=== PATIENT | female | born 1990 | race Caucasian/White ===

== ENCOUNTER 2017-01-28 07:19 | Emergency (ER) | payer MEDICAID ==
[~2017-01-28] VITALS: Ht 165.1 cm; Wt 87.0 kg
[~2017-01-28 07:19] MED LIST: PREN1CAP7 PO; TERC20CR VAGINAL; VITA100032; VITATAB11
[2017-01-28 07:22] VITALS: BP 116/78; PULSE 95; RESP 16; TEMP 99.4; O2SAT 96
--- NOTE | 2017-01-28 07:47 | PD ---
HPI Chief Complaint: Related Problem Time Seen by Provider: 07:31 Travel History International Travel<30 days: No Contact w/Intl Traveler<30days: No Traveled to known affect area: No History of Present Illness HPI This is a 26-year-old who presents to the emergency department approximately 8 weeks with vaginal spotting that started yesterday and having a larger amount of dark blood this morning with some subsequent spotting and some lower abdominal cramping, mild, intermittent. She has had one miscarriage in the past. She has had a ultrasound in this confirming IUP. She has never required RhoGAM in prior pregnancies. PFSH Past Medical History Diminished Hearing: No ?: LMP: last week of October : 1 Miscarriage: 1 Past Surgical History Gynecologic Surgery: Yes (D&C 2005 MISCARRIAGE ) Social History Alcohol Use: No Tobacco Use: No Substance Use: No Allergies-Medications (Allergen,Severity, Reaction): Coded Allergies: No Known Allergies (Verified , 01/28/17) Reported Meds & Prescriptions Reported Meds & Active Scripts Active Citranatal [place] ( W/O Vit A W/ Fe Fumar) 27-1-260 Mg Cap 1 Cap PO DAILY Terazol 3 Vaginal Cream (Terconazole Vaginal Cream) 0.8 % Cream 1 Appl VAGINAL HS 1 applicatorful intravaginally x 3 nights Vitafol Ultra 29-0.6-0.4-200 mg ( Vit W/ Fe Polysacch C) 1 Cap Cap Reported Vitamin D (Cholecalciferol) 1,000 Unit Cap 1,000 DAILY Vitamin B Complex (B-Complex Vitamins) 1 Tab Review of Systems Except as stated in HPI: all other systems reviewed are Neg Physical Exam Narrative GENERAL:Well appearing, no acute distress SKIN: Warm and dry. HEAD: Atraumatic. Normocephalic. EYES: Pupils equal and round. No injection or drainage. ENT: Moist mucous membranes NECK: Trachea midline. CARDIOVASCULAR: Regular rate and rhythm. No murmur appreciated. RESPIRATORY: Clear to auscultation. Breath sounds equal bilaterally. GASTROINTESTINAL: Abdomen soft, non-tender, nondistended. MUSCULOSKELETAL: No obvious deformities. NEUROLOGICAL: Awake and alert. No obvious cranial nerve deficits. Moving all extremities. PSYCHIATRIC: Appropriate mood and affect; insight and judgment normal. Data Data Last Documented VS Vital Signs Date Time Temp Pulse Resp B/P Pulse Ox O2 Delivery O2 Flow Rate FiO2 4/2/17 07:22 99.4 95 16 116/78 96 Orders Ed Poc Ultrasound (01/28/17 ) MDM Medical Decision Making Medical Screen Exam Complete: Yes Emergency Medical Condition: Yes Interpretation(s) afebrile, no tachycardia, normotensive Differential Diagnosis Intrauterine , ectopic , threatened miscarriage, complete miscarriage Narrative Course This is a 26-year-old female who presents to the emergency department with some spotting in the setting of early . Physical exam is reassuring. Ultrasound was performed demonstrating an intrauterine with a normal heart rate. Rh status is not necessary given patient is having spotting and not significant clinical bleeding. Patient will be discharged to follow-up with her primary SANITATION LABORER. Diagnosis Primary Impression: Threatened miscarriage Patient Instructions: General Instructions Additional Instructions: You have been diagnosed with a threatened miscarriage. Many women who have vaginal bleeding in early go on to have normal pregnancies. However some women that have vaginal bleeding will have a miscarriage and it is important to followup with your turner off. If you develop severe abdominal pain, fever, persistent vomiting or inability to eat, heavy vaginal bleeding using more than one pad an hour, lightheadedness , dizziness, chest pain or shortness of breath return to the emergency department immediately. Followup with your turner off as soon as possible. Take Tylenol as needed for pain. Med/Other Pt SpecificInfo: No Change to Meds Disposition: 01 DISCHARGE HOME Condition: Stable Latrice Fuentes MD Jan 28, 2017 07:47
[2017-01-29] MEDS ORDERED: CYTO200T PO (11:35)
[2017-03-13] MEDS ORDERED: MULT-120 PO (10:56)
[2017-03-23] MEDS ORDERED: MULTLIQ PO (10:25)
== END 2017-01-28 08:08 | disposition home or self-care (01) ==
LOC: PHED 07:19
DX: O20.0 Threatened abortion (principal); Z3A.08 8 weeks gestation of pregnancy
CPT/HCPCS: 99283

== ENCOUNTER 2017-01-28 12:44 | Emergency (ER) | payer MEDICAID ==
[2017-01-28 13:11] VITALS: BP 131/69; PULSE 100; RESP 20; TEMP 98.2; O2SAT 100
[2017-01-28] MEDS ORDERED: ACETAMINOPHEN 500 MG CPLT PO ONE (13:30)
[2017-01-28] MEDS ORDERED: SODIUM CHLOR 0.9% 1000 ML INJ 1,000 ML IV ONE (13:30)
[2017-01-28 13:44] LABS: AUTOMATED NEUTROPHIL # 12.3 TH/MM3 (1.8-7.7); BASOPHIL # 0.2 TH/MM3 (0-0.2); BASOPHIL % 1.6 % (0.0-2.0); EOSINOPHIL % 0.1 % (0.0-4.0); HEMATOCRIT 38.6 % (35.0-46.0); HEMO FLAGS DIFF FINAL; LYMPH % 5.8 % (9.0-44.0); LYMPHOCYTE # 0.8 TH/MM3 (1.0-4.8); MEAN CELL VOLUME 91.5 FL (80.0-100.0); MEAN CORPUSCULAR HEMOGLOBIN 30.9 PG (27.0-34.0); MEAN CORPUSCULAR HGB CONC 33.8 % (32.0-36.0); MONO % 4.8 % (0.0-8.0); NEUT % 87.7 % (16.0-70.0); PLATELET COUNT 175 TH/MM3 (150-450); RED BLOOD COUNT 4.22 MIL/MM3 (4.00-5.30)
[2017-01-28 13:52] LABS: POTASSIUM 3.6 MEQ/L (3.5-5.1)
[2017-01-28 13:55] LABS: BICARBONATE 24.3 MEQ/L (21.0-32.0)
--- NOTE | 2017-01-28 14:04 | PD ---
HPI Chief Complaint: Related Problem Time Seen by Provider: 13:18 Travel History International Travel<30 days: No Contact w/Intl Traveler<30days: No Traveled to known affect area: No History of Present Illness HPI This is a 26-year-old female who I saw earlier today in the setting of a threatened miscarriage who presents to the emergency department having gone home and then 1 hour for her to arrival started to have heavy bleeding to the point where she had to change 6 pads and she didn't feel like it was stopping, constant, severe, associated with some lightheadedness and moderate severity abdominal cramping. She was nervous about the amount of bleeding she had so she came to the emergency department. [facility] Past Medical History Diminished Hearing: No ?: : 5 Para: 3 Miscarriage: 1 Past Surgical History Gynecologic Surgery: Yes (D&C 2005 MISCARRIAGE ) Other Surgery: Yes (breast agumentation, tummy tuck) Social History Alcohol Use: No Tobacco Use: No Substance Use: No Allergies-Medications (Allergen,Severity, Reaction): Coded Allergies: No Known Allergies (Verified , 01/28/17) Reported Meds & Prescriptions Reported Meds & Active Scripts Active Citranatal [place] ( W/O Vit A W/ Fe Fumar) 27-1-260 Mg Cap 1 Cap PO DAILY Review of Systems Except as stated in HPI: all other systems reviewed are Neg Physical Exam Narrative GENERAL:Well appearing, no acute distress SKIN: Warm and dry. HEAD: Atraumatic. Normocephalic. EYES: Pupils equal and round. No injection or drainage. ENT: Moist mucous membranes NECK: Trachea midline. CARDIOVASCULAR: Regular rate and rhythm. No murmur appreciated. RESPIRATORY: Clear to auscultation. Breath sounds equal bilaterally. GASTROINTESTINAL: Abdomen soft, mildly tender to palpation in the lower abdomen with no rebound or guarding. MUSCULOSKELETAL: No obvious deformities. NEUROLOGICAL: Awake and alert. No obvious cranial nerve deficits. Moving all extremities. PSYCHIATRIC: Appropriate mood and affect; insight and judgment normal. Data Data Last Documented VS Vital Signs Date Time Temp Pulse Resp B/P Pulse Ox O2 Delivery O2 Flow Rate FiO2 01/28/17 14:05 100 18 115/75 100 Room Air 01/28/17 13:11 98.2 Orders Complete Blood Count With Diff (01/28/17 13:21) Basic Metabolic Panel (Bmp) (01/28/17 13:21) Type And Screen (01/28/17 13:21) ^ Insert Iv (01/28/17 13:21) Sodium Chlor 0.9% 1000 Ml Inj (Ns 1000 M (01/28/17 13:30) Acetaminophen (Tylenol) (01/28/17 13:30) Ed Poc Ultrasound (01/28/17 ) Labs Laboratory Tests Test 01/28/17 13:25 White Blood Count 14.0 TH/MM3 Red Blood Count 4.22 MIL/MM3 Hemoglobin 13.0 GM/DL Hematocrit 38.6 % Mean Corpuscular Volume 91.5 FL Mean Corpuscular Hemoglobin 30.9 PG Mean Corpuscular Hemoglobin 33.8 % Concent Red Cell Distribution Width 12.0 % Platelet Count 175 TH/MM3 Mean Platelet Volume 8.9 FL Neutrophils (%) (Auto) 87.7 % Lymphocytes (%) (Auto) 5.8 % Monocytes (%) (Auto) 4.8 % Eosinophils (%) (Auto) 0.1 % Basophils (%) (Auto) 1.6 % Neutrophils # (Auto) 12.3 TH/MM3 Lymphocytes # (Auto) 0.8 TH/MM3 Monocytes # (Auto) 0.7 TH/MM3 Eosinophils # (Auto) 0.0 TH/MM3 Basophils # (Auto) 0.2 TH/MM3 CBC Comment DIFF FINAL Differential Comment Sodium Level 141 MEQ/L Potassium Level 3.6 MEQ/L Chloride Level 105 MEQ/L Carbon Dioxide Level 24.3 MEQ/L Anion Gap 12 MEQ/L Blood Urea Nitrogen 9 MG/DL Creatinine 0.71 MG/DL Estimat Glomerular Filtration 98 ML/MIN Rate Random Glucose 95 MG/DL Calcium Level 9.0 MG/DL [facility] Medical Decision Making Medical Screen Exam Complete: Yes Emergency Medical Condition: Yes Interpretation(s) afebrile, no tachycardia, normotensive leukocytosis possible stress response Differential Diagnosis Threatened miscarriage, incomplete miscarriage, complete miscarriage Narrative Course This is a 26-year-old female who presents to the emergency department with heavy vaginal bleeding that's been going on for an hour in the setting of a threatened miscarriage diagnosed earlier today. On pelvic exam she has clots and some fibrinous products in the vault. Bedside ultrasound demonstrates heterogenous material in the uterus with no intrauterine , changed from ultrasound earlier today. I suspect the patient is having a miscarriage. Patient's vital signs are reassuring and her blood count is normal. I think she can be discharged home and follow-up with her field care coordinator as an outpatient. Diagnosis Primary Impression: Incomplete miscarriage Patient Instructions: General Instructions Additional Instructions: If you develop severe abdominal pain, fever, persistent vomiting or inability to eat, heavy vaginal bleeding using more than one pad an hour, lightheadedness , dizziness, chest pain or shortness of breath return to the emergency department immediately. Followup with your financial services manager as soon as possible. Take Tylenol as needed for pain. Med/Other Pt SpecificInfo: No Change to Meds Disposition: 01 DISCHARGE HOME Condition: Stable Latrice Fuentes MD Jan 28, 2017 14:04
[2017-01-28 14:05] VITALS: BP 115/75; PULSE 100; RESP 18; O2SAT 100
[2017-01-28] MEDS ORDERED: KETOROLAC TROMETHAMINE 30 MG/ML (IVP) VIAL IV PUSH ONE (14:45)
[2017-01-29] MEDS ORDERED: CYTO200T PO (11:35)
[2017-03-13] MEDS ORDERED: MULT-120 PO (10:56)
[2017-03-23] MEDS ORDERED: MULTLIQ PO (10:25)
== END 2017-01-28 14:58 | disposition home or self-care (01) ==
LOC: PHED 12:44
DX: O03.4 Incomplete spontaneous abortion without complication (principal); R42 Dizziness and giddiness; R10.9 Unspecified abdominal pain; Z3A.08 8 weeks gestation of pregnancy
CPT/HCPCS: 80048; 85025; 86850; 86900; 86901; 96361; 96374; 99284; J1885; J7030

== ENCOUNTER 2017-01-29 08:52 | Emergency (ER) | payer MEDICAID ==
[~2017-01-29] VITALS: Ht 165.1 cm; Wt 88.0 kg
[2017-01-29 08:56] VITALS: BP 113/77; PULSE 96; RESP 18; TEMP 98.5; O2SAT 100
[2017-01-29] MEDS ORDERED: KETOROLAC TROMETHAMINE 30 MG/ML (IVP) VIAL IV PUSH ONE (09:15)
[2017-01-29] MEDS ORDERED: SODIUM CHLOR 0.9% 1000 ML INJ 1,000 ML IV ONE (09:15)
--- NOTE | 2017-01-29 09:22 | PD ---
HPI Chief Complaint: Related Problem Time Seen by Provider: 09:06 Travel History International Travel<30 days: No Contact w/Intl Traveler<30days: No Traveled to known affect area: No History of Present Illness HPI The patient is a 26-year-old female who presents emergency department for abdominal pain after a miscarriage. The patient is his last menstrual cycle was at the end of October. The patient was evaluated in the emergency department yesterday which initially had an ultrasound at bedside which revealed an IUP with positive heart rates. The patient came back several hours later with increased vaginal bleeding and the passage of tissue including large blood clots. The patient had a repeat ultrasound at bedside at that time which revealed no visible IUP. The patient states she was going through approximate 6 pads per hour at that time, it is now only one pad per hour. The patient tried to follow-up with her OB at the women[facility] care clinic in [facility], however, they referred her back to the emergency department for abdominal pain. She now complains of diffuse abdominal pain that is worse with lying supine, slightly improved with sitting upright. She does have mild vaginal bleeding now, approximately one pad per hour. The patient denies any nausea or vomiting. She does complain of diffuse abdominal pain however. The patient states her previous 3 deliveries were vaginal, her only previous abdominal surgery was a "tummy tuck". The patient denies any fever, chills, or sweats. PFSH Past Medical History Medical History: Denies Significant Hx Diminished Hearing: No Tetanus Vaccination: Unknown Influenza Vaccination: No ?: Not : 5 Para: 3 Miscarriage: 1 Past Surgical History Gynecologic Surgery: Yes (D&C 2005 MISCARRIAGE ) Other Surgery: Yes (breast agumentation, tummy tuck) Social History Alcohol Use: No Tobacco Use: No Substance Use: No Allergies-Medications (Allergen,Severity, Reaction): Coded Allergies: No Known Allergies (Verified , 01/29/17) Reported Meds & Prescriptions Reported Meds & Active Scripts Active Citranatal [place] ( W/O Vit A W/ Fe Fumar) 27-1-260 Mg Cap 1 Cap PO DAILY Review of Systems Except as stated in HPI: all other systems reviewed are Neg General / Constitutional: No: Fever Cardiovascular: No: Chest Pain or Discomfort Respiratory: No: Shortness of Breath Gastrointestinal: Positive: Abdominal Pain, No: Nausea, Vomiting Genitourinary: Positive: Pelvic Pain, Vaginal Bleeding, No: Dysuria Physical Exam Narrative GENERAL: Awake, alert, 26-year-old female who appears her stated age and is in no acute respiratory distress. SKIN: Focused skin assessment warm/dry. HEAD: Atraumatic. Normocephalic. EYES: No injection or drainage. ENT: No nasal bleeding or discharge. Mucous membranes pink and moist. NECK: Trachea midline. No JVD. CARDIOVASCULAR: Regular rate and rhythm. No murmur appreciated. RESPIRATORY: No accessory muscle use. Clear to auscultation. Breath sounds equal bilaterally. GASTROINTESTINAL: Abdomen soft, tender palpation bilateral lower quadrants, but no guarding or rigidity noted. Pelvic: The exam was performed in the presence of a female nurse. External examination reveals blood at the introitus. Speculum examination reveals blood in the vaginal vault, no obvious clots or tissue. Cervix is dilated with a bluish tinge, appears to be tissue versus clot at the cervical os. Back: No CVA tenderness. MUSCULOSKELETAL: No obvious deformities. No clubbing. No cyanosis. No edema. NEUROLOGICAL: Awake and alert. No obvious cranial nerve deficits. Motor grossly within normal limits. Normal speech. PSYCHIATRIC: Appropriate mood and affect; insight and judgment normal. Data Data Last Documented VS Vital Signs Date Time Temp Pulse Resp B/P Pulse Ox O2 Delivery O2 Flow Rate FiO2 01/29/17 10:59 18 01/29/17 08:56 98.5 96 113/77 100 Orders Abdomen, Upright Only (01/29/17 ) Complete Blood Count With Diff (01/29/17 09:06) Urinalysis - C+S If Indicated (01/29/17 09:06) Ketorolac Inj (Toradol Inj) (01/29/17 09:15) Sodium Chlor 0.9% 1000 Ml Inj (Ns 1000 M (01/29/17 09:15) Beta Hcg (Quant/Titer) (01/29/17 09:17) Us Pelvis (Ques Pr/Ect)W Trans (01/29/17 ) Labs Laboratory Tests Test 01/29/17 01/29/17 09:22 09:27 Urine Collection Type CLEAN CATCH Urine Color YELLOW Urine Turbidity CLEAR Urine pH 5.5 Urine Specific [place] 1.007 Urine Protein NEG mg/dL Urine Glucose (UA) NEG mg/dL Urine Ketones NEG mg/dL Urine Occult Blood MOD Urine Nitrite NEG Urine Bilirubin NEG Urine Leukocyte Esterase NEG Urine RBC 10-14 /hpf Urine Squamous Epithelial 0-5 /hpf Cells Microscopic Urinalysis Comment CULT NOT INDICATED Urine Collection Time 09:22 White Blood Count 10.0 TH/MM3 Red Blood Count 3.82 MIL/MM3 Hemoglobin 11.9 GM/DL Hematocrit 35.3 % Mean Corpuscular Volume 92.4 FL Mean Corpuscular Hemoglobin 31.0 PG Mean Corpuscular Hemoglobin 33.6 % Concent Red Cell Distribution Width 12.5 % Platelet Count 151 TH/MM3 Mean Platelet Volume 9.0 FL Neutrophils (%) (Auto) 89.2 % Lymphocytes (%) (Auto) 5.0 % Monocytes (%) (Auto) 4.7 % Eosinophils (%) (Auto) 0.5 % Basophils (%) (Auto) 0.6 % Neutrophils # (Auto) 8.9 TH/MM3 Lymphocytes # (Auto) 0.5 TH/MM3 Monocytes # (Auto) 0.5 TH/MM3 Eosinophils # (Auto) 0.0 TH/MM3 Basophils # (Auto) 0.1 TH/MM3 CBC Comment DIFF FINAL Differential Comment Human Chorionic Gonadotropin, [id number] MIU/ML Quant MDM Medical Decision Making Medical Screen Exam Complete: Yes Emergency Medical Condition: Yes Medical Record Reviewed: Yes Interpretation(s) Laboratory Tests Test 01/29/17 01/29/17 09:22 09:27 Urine Collection Type CLEAN CATCH Urine Color YELLOW Urine Turbidity CLEAR Urine pH 5.5 Urine Specific [place] 1.007 Urine Protein NEG mg/dL Urine Glucose (UA) NEG mg/dL Urine Ketones NEG mg/dL Urine Occult Blood MOD Urine Nitrite NEG Urine Bilirubin NEG Urine Leukocyte Esterase NEG Urine RBC 10-14 /hpf Urine Squamous Epithelial 0-5 /hpf Cells Microscopic Urinalysis Comment CULT NOT INDICATED Urine Collection Time 09:22 White Blood Count 10.0 TH/MM3 Red Blood Count 3.82 MIL/MM3 Hemoglobin 11.9 GM/DL Hematocrit 35.3 % Mean Corpuscular Volume 92.4 FL Mean Corpuscular Hemoglobin 31.0 PG Mean Corpuscular Hemoglobin 33.6 % Concent Red Cell Distribution Width 12.5 % Platelet Count 151 TH/MM3 Mean Platelet Volume 9.0 FL Neutrophils (%) (Auto) 89.2 % Lymphocytes (%) (Auto) 5.0 % Monocytes (%) (Auto) 4.7 % Eosinophils (%) (Auto) 0.5 % Basophils (%) (Auto) 0.6 % Neutrophils # (Auto) 8.9 TH/MM3 Lymphocytes # (Auto) 0.5 TH/MM3 Monocytes # (Auto) 0.5 TH/MM3 Eosinophils # (Auto) 0.0 TH/MM3 Basophils # (Auto) 0.1 TH/MM3 CBC Comment DIFF FINAL Differential Comment Human Chorionic Gonadotropin, [id number] MIU/ML Quant Last Impressions Abdomen X-Ray 01/29/17 0000 Signed Impressions: Service Date/Time: Sunday, January 29, 2017 09:22 - CONCLUSION: Negative Km Wasserman MD Ultrasound of the pelvis with transvaginal reveals heterogeneous material within the uterus. The endometrium is quite thickened. No definite blood flow within this on-call flow imaging, may represent retained clot however, cannot exclude retained products of conception. Differential Diagnosis Differential diagnosis includes retained products of conception, incomplete AB, threatened AB, perforated viscus, septic , UTI. Narrative Course IV was established, labs are drawn and sent, and the patient was placed on cardiac telemetry monitoring and continuous pulse oximetry monitoring. I reviewed the patient's EMR from yesterday including Dr. Fuentes's original note in the morning regarding an IUP on ultrasound and then the second no which reveals bedside ultrasound with no visible IUP. I performed a bedside ultrasound which does reveal blood products within the uterus, but no visible IUP. No significant free fluid was noted on exam. Therefore, formal ultrasound was ordered to evaluate for possible retained products, upright x- ray was obtained to rule out free air. The patient was administered Toradol and IV fluids. The patient's previous EMR reveals blood bank on January 28, 2017, patient is O+, therefore, no indication for RhoGAM. Ultrasound reveals a heterogeneous material within the uterus with thickened endometrium, may represent clot versus retained products of conception. Therefore, the on-call OB hospitalist was paged, to determine if patient may benefit from medical management of incomplete AB. I discussed the patient with the on-call OB hospitals, Dr. Davis, and after discussion was agreed the patient could have Cytotec 600 g 1. Patient is advised also that she will continue have some abdominal cramping and will be provided pain medications. Diagnosis Primary Impression: Incomplete miscarriage Patient Instructions: General Instructions Additional Instructions: Please provide the patient a copy of her ultrasound results and lab results at discharge. Follow-up with your primary physician and cvt rn. Return if symptoms worsen or progress. Med/Other Pt SpecificInfo: Prescription(s) given Scripts Misoprostol (Cytotec)200 Mcg [id number] Mcg PO ONCE #3 TAB Ref 0 Prov:Leif Martinez MD 01/29/17 Disposition: 01 DISCHARGE HOME Condition: Stable Leif Martinez MD Jan 29, 2017 09:22
[2017-01-29 09:42] LABS: AUTOMATED NEUTROPHIL # 8.9 TH/MM3 (1.8-7.7); BASOPHIL # 0.1 TH/MM3 (0-0.2); BASOPHIL % 0.6 % (0.0-2.0); EOSINOPHIL % 0.5 % (0.0-4.0); HEMATOCRIT 35.3 % (35.0-46.0); HEMO FLAGS DIFF FINAL; LYMPHOCYTE # 0.5 TH/MM3 (1.0-4.8); MEAN CELL VOLUME 92.4 FL (80.0-100.0); MEAN CORPUSCULAR HGB CONC 33.6 % (32.0-36.0); MONO % 4.7 % (0.0-8.0); NEUT % 89.2 % (16.0-70.0); PLATELET COUNT 151 TH/MM3 (150-450); RED BLOOD COUNT 3.82 MIL/MM3 (4.00-5.30); RED CELL DISTRIBUTION WIDTH 12.5 % (11.6-17.2)
[2017-01-29 09:42] LABS: GLUCOSE,URINE NEG (NEG); KETONE, URINE NEG (NEG); NITRITE,URINE NEG (NEG); PH, URINE 5.5 (5.0-8.5)
[2017-01-29 10:04] LABS: BLOOD, URINE MOD (NEG)
[2017-01-29 10:05] LABS: COMMENT (UR) CULT NOT INDICATED; CULTURE IF INDICATED CULT NOT INDICATED; METHOD OF COLLECTION CLEAN CATCH; SQUAMOUS EPITHELIAL CELL URINE 0-5 /hpf (0-5); URINE COLOR YELLOW (YELLW/STRAW)
--- NOTE | 2017-01-29 10:14 | RADHPO ---
EXAM DATE/TIME: 01/29/2017 09:22 [facility] COMPARISON: No previous studies available for comparison. INDICATIONS : Severe abdominal pain post miscarriage. Patient states abominal pain on deep inspiration/expiration. MEDICAL HISTORY : SURGICAL HISTORY : ENCOUNTER: Subsequent ACUITY: 2 days PAIN SCORE: 10/10 LOCATION: entire abdomen. FINDINGS: No evidence of pneumoperitoneum. Visualized intestinal gas pattern is unremarkable. Lung bases appear clear CONCLUSION: Negative Km Wasserman MD on January 29, 2017 at 10:12 Board Certified Radiologist. This report was verified electronically.
[2017-01-29 10:26] LABS: BETA HCG QUANT 16288 MIU/ML (0-5)
[2017-01-29 10:59] VITALS: RESP 18
--- NOTE | 2017-01-29 11:29 | RADHPO ---
EXAM DATE/TIME: 01/29/2017 10:34 [facility] COMPARISON: No previous studies available for comparison. INDICATIONS : Pelvic pain following spontaneous 01/28/17. LAB(S): Beta-hC,288 MEDICAL HISTORY : Spontaneous 01/28/17. SURGICAL HISTORY : D&C. Breast augmentation. Tien framer. ENCOUNTER: Initial ACUITY: 1 day PAIN SCORE: 7/10 LOCATION: Bilateral pelvis MEASUREMENTS: UTERUS: 13.1 x 7.1 x 7.4 cm ENDOMETRIAL STRIPE: >20 mm RIGHT OVARY: 4.9 x 3.2 x 4.0 cm LEFT OVARY: 5.6 x 3.3 x 3.7 cm FREE FLUID: Yes Cul-de-sac CROWN RUMP LENGTH: Non-visualized = WKS DAYS FHR: Non-visualized BPM FINDINGS: UTERUS: The examination demonstrates heterogeneous material within the uterine cavity. I do not see definite blood flow within this on the color flow images. This may simply represent hemorrhage within the uter ine cavity however, I cannot exclude retained products of conception. Patient will need followup ultr asound to ensure this resolves. RIGHT OVARY: Ovary contains no mass or significant cystic lesion. LEFT OVARY: Ovary contains no mass or significant cystic lesion. MISCELLANEOUS: No free fluid. CONCLUSION: 1. There is heterogeneous material within the uterus. The endometrium is quite thickened. I do not se e definite blood flow within this on color-flow imaging. This may represent retained clot however I c annot exclude retained products of conception. Mumtaz Hebert MD on January 29, 2017 at 11:25 Board Certified Radiologist. This report was verified electronically.
[2017-01-29] MEDS ORDERED: CYTO200T PO (11:35)
[2017-01-29 11:45] VITALS: BP 106/65
[2017-03-13] MEDS ORDERED: MULT-120 PO (10:56)
[2017-03-23] MEDS ORDERED: MULTLIQ PO (10:25)
== END 2017-01-29 11:48 | disposition home or self-care (01) ==
LOC: PHED 08:52
DX: O03.4 Incomplete spontaneous abortion without complication (principal); R10.9 Unspecified abdominal pain
CPT/HCPCS: 74000; 76700; 76817; 81001; 84702; 85025; 96361; 96374; 99284; J1885; J7030

== ENCOUNTER → 2017-05-22 | Outpatient (CLI) | payer OTHER ==
[~2017-05-22] MED LIST changes: +MULTLIQ PO; -PREN1CAP7 PO; -TERC20CR VAGINAL; -VITA100032; -VITATAB11
--- NOTE | 2017-05-22 14:09 | RADRPT ---
EXAM DATE/TIME: 05/22/2017 10:44 [facility] COMPARISON: No previous studies available for comparison. INDICATIONS : Right hand joint pain. MEDICAL HISTORY : Psoriasis. SURGICAL HISTORY : None. ENCOUNTER: Initial ACUITY: 2 months PAIN SCORE: 3/10 LOCATION: Right hand, joint. FINDINGS: Three view examination of the right hand demonstrates no soft tissue swelling, dislocation, or fractu re. The carpal bones appear intact. The interphalangeal and metacarpophalangeal joints are intact. Bony mineralization is normal. CONCLUSION: Unremarkable examination of the right hand. Santos Estrada Jr., MD on May 22, 2017 at 14:07 Board Certified Radiologist. This report was verified electronically.
--- NOTE | 2017-05-22 14:40 | RADRPT ---
EXAM DATE/TIME: 05/22/2017 10:44 [facility] COMPARISON: No previous studies available for comparison. INDICATIONS : Right hip joint pain. MEDICAL HISTORY : Psoriasis. SURGICAL HISTORY : None. ENCOUNTER: Initial ACUITY: 2 months PAIN SCORE: 3/10 LOCATION: Right hip joint. FINDINGS: A two view examination of the right hip was performed. The primary and secondary trabecular pattern of the femoral neck is intact. The hip joint is of normal width without significant sclerosis or bon y hypertrophy. The acetabulum is grossly intact. CONCLUSION: Unremarkable examination of the right hip. Santos Estrada Jr., MD on May 22, 2017 at 14:37 Board Certified Radiologist. This report was verified electronically.
--- NOTE | 2017-05-22 14:44 | RADRPT ---
EXAM DATE/TIME: 05/22/2017 10:44 [facility] COMPARISON: No previous studies available for comparison. INDICATIONS : left hip joint pain. MEDICAL HISTORY : Psoriasis. SURGICAL HISTORY : None. ENCOUNTER: Initial ACUITY: 2 months PAIN SCORE: 4/10 LOCATION: Left hip, joint. FINDINGS: A two view examination of the left hip was performed. The primary and secondary trabecular pattern o f the femoral neck is intact. The hip joint is of normal width without significant sclerosis or bony hypertrophy. The acetabulum is grossly intact. CONCLUSION: Unremarkable examination of the left hip. Santos Estrada Jr., MD on May 22, 2017 at 14:38 Board Certified Radiologist. This report was verified electronically.
--- NOTE | 2017-05-22 14:46 | RADRPT ---
EXAM DATE/TIME: 05/22/2017 10:45 [facility] COMPARISON: No previous studies available for comparison. INDICATIONS : Left hand joint pain. MEDICAL HISTORY : Psoriasis. SURGICAL HISTORY : None. ENCOUNTER: Initial ACUITY: 2 months PAIN SCORE: 3/10 LOCATION: Left hand, joint. FINDINGS: Three view examination of the left hand demonstrates no soft tissue swelling, dislocation, or fractur e. The carpal bones appear intact. The interphalangeal and metacarpophalangeal joints are intact. Bony mineralization is normal. CONCLUSION: Unremarkable examination of the left hand. Santos Estrada Jr., MD on May 22, 2017 at 14:42 Board Certified Radiologist. This report was verified electronically.
--- NOTE | 2017-05-22 14:47 | RADRPT ---
EXAM DATE/TIME: 05/22/2017 10:47 [facility] COMPARISON: No previous studies available for comparison. INDICATIONS : Right foot joint pain. MEDICAL HISTORY : psoriasis 7 years. SURGICAL HISTORY : None. ENCOUNTER: Initial ACUITY: 2 months PAIN SCORE: 4/10 LOCATION: Right Foot, joint. FINDINGS: Three view examination of the right foot demonstrates no soft tissue swelling, dislocation, or fractu re. The tarsal bones appear intact. The interphalangeal and metatarsophalangeal joints are intact. The calcaneus is intact. Bony mineralization is normal. CONCLUSION: Unremarkable examination of the right foot. Santos Estrada Jr., MD on May 22, 2017 at 14:45 Board Certified Radiologist. This report was verified electronically.
--- NOTE | 2017-05-22 14:48 | RADRPT ---
EXAM DATE/TIME: 05/22/2017 10:49 [place] COMPARISON: No previous studies available for comparison. INDICATIONS : Left foot joint pain. MEDICAL HISTORY : Psoriasis. SURGICAL HISTORY : None. ENCOUNTER: Initial ACUITY: 2 months PAIN SCORE: 4/10 LOCATION: Left Foot. FINDINGS: Three view examination of the left foot demonstrates no soft tissue swelling, dislocation, or fractur e. The tarsal bones appear intact. The interphalangeal and metatarsophalangeal joints are intact. The calcaneus is intact. Bony mineralization is normal. CONCLUSION: Unremarkable examination of the left foot. Santos Estrada Jr., MD on May 22, 2017 at 14:45 Board Certified Radiologist. This report was verified electronically.
== END ==
LOC: HRAD 10:22
PROVIDERS: ATTEND Internal Medicine Rheumatology
DX: M19.90 Unspecified osteoarthritis, unspecified site (principal)
CPT/HCPCS: 73130; 73502; 73630

== ENCOUNTER 2017-10-02 08:31 | Emergency (ER) | payer MEDICAID, OTHER ==
[~2017-10-02] VITALS: Ht 165.1 cm; Wt 81.5 kg
[2017-10-02 08:32] VITALS: BP 128/73; PULSE 102; RESP 20; TEMP 99.1; O2SAT 100
[2017-10-02] MEDS ORDERED: AMOX500T PO (09:26)
--- NOTE | 2017-10-02 09:29 | PD ---
HPI Chief Complaint: ENT Complaint Time Seen by Provider: 09:17 Travel History International Travel<30 days: No Contact w/Intl Traveler<30days: No Traveled to known affect area: No History of Present Illness HPI 27-year-old female presents to the emergency room for evaluation of severe sore throat, chills, and body aches that started last night. She took ibuprofen this morning without significant relief in symptoms. States she gets strep throat a lot. Denies any chronic medical conditions or daily medications. PFSH Past Medical History Diminished Hearing: No : 5 Para: 3 Miscarriage: 1 Past Surgical History Gynecologic Surgery: Yes (D&C 2005 MISCARRIAGE ) Other Surgery: Yes (breast agumentation, tummy tuck) Social History Alcohol Use: No Tobacco Use: No Substance Use: No Allergies-Medications (Allergen,Severity, Reaction): Coded Allergies: No Known Allergies (Verified Adverse Reaction, Unknown, 10/02/17) Reported Meds & Prescriptions Reported Meds & Active Scripts Active Amoxicillin 500 Mg Tab 500 Mg PO BID 10 Days Review of Systems Except as stated in HPI: all other systems reviewed are Neg Physical Exam Narrative GENERAL: Well-nourished, well-developed female in no acute distress. Afebrile. Ambulatory. SKIN: Focused skin assessment warm/dry. HEAD: Normocephalic. EYES: No scleral icterus. No injection or drainage. ENT: Mucosa pink and moist. Extreme erythema, mild edema and exudates. No uvular edema. No uvular, palatal, or tonsillar deviation. Airway patent. NECK: Supple, trachea midline. No JVD or lymphadenopathy. CARDIOVASCULAR: Regular rate and rhythm without murmurs, gallops, or rubs. RESPIRATORY: Breath sounds equal bilaterally. No accessory muscle use. Data Data Last Documented VS Vital Signs Date Time Temp Pulse Resp B/P (MAP) Pulse Ox O2 Delivery O2 Flow Rate FiO2 10/02/17 08:32 99.1 102 20 128/73 (91) 100 Room Air Orders Orders Group A Rapid Strep Screen (10/02/17 08:46) MDM Medical Decision Making Medical Screen Exam Complete: Yes Emergency Medical Condition: Yes Medical Record Reviewed: Yes Differential Diagnosis Strep, flu, URI Narrative Course 27-year-old female presents to the emergency room for evaluation of severe sore throat, chills, and body aches since last night. Patient is afebrile well- appearing in the emergency room. Physical exam reveals extreme erythematous pharynx with mild edema and exudates. Vital signs stable. Rapid strep is positive. Patient given amoxicillin and told to follow up with PCP or return for worsening symptoms. She understands and agrees to plan. Diagnosis Primary Impression: Strep pharyngitis Referrals: Primary Care Physician Additional Instructions: Rest and drink plenty of fluids. Take amoxicillin as directed, until gone. Tylenol and Motrin for pain. Follow up with a primary care physician. Return to emergency room for worsening symptoms, as discussed. Med/Other Pt SpecificInfo: Prescription(s) given Scripts Amoxicillin (Amoxicillin) 500 Mg Tab 500 MG PO BID for Infection for 10 Days, #20 TAB 0 Refills Prov: Campos Gonzalez MD 10/02/17 Disposition: 01 DISCHARGE HOME Condition: Stable Taylor Miranda Oct 02, 2017 09:29
== END 2017-10-02 09:38 | disposition home or self-care (01) ==
LOC: NEPK 08:31
DX: J02.0 Streptococcal pharyngitis (principal)
CPT/HCPCS: 87880; 99283